=== PATIENT | female | born 1950 | race Caucasian/White ===

== ENCOUNTER 2024-09-02 14:04 | Inpatient (IN) | payer OTHER ==
[2024-09-02 15:20] VITALS: BMI 14.0
[2024-09-02] MEDS ORDERED: POLYETHYLENE GLYCOL (HEALTHYLAX) 3350 17 GM PACKET PO PRN (15:58)
[2024-09-02] MEDS ORDERED: hydrOXYzine PAMOATE 25 MG CAPSULE (FP) PO PRN (15:58)
[2024-09-02] MEDS ORDERED: MAGNESIUM HYDROX 2400MG/30ML ORAL SUSPENSION 30 ML CUP PO PRN (15:58)
[2024-09-02] MEDS ORDERED: NALOXONE (NARCAN) HCL 4 MG/0.1 ML SPRAY NS PRN (15:58)
[2024-09-02] MEDS ORDERED: BENZONATATE 200 MG CAPSULE PO PRN (15:58)
[2024-09-02] MEDS ORDERED: BISMUTH SUBSALICYLATE 524 MG/30 ML PO PRN (15:58)
[2024-09-02] MEDS ORDERED: BENZOCAINE/MENTHOL (CHLORASEPTIC ) LOZENGE MM PRN (15:58)
[2024-09-02] MEDS ORDERED: MAG HYDROX/AL HYDROX/SIMETH 30 ML UNIT-DOSE CUP PO PRN (15:58)
[2024-09-02] MEDS ORDERED: guaiFENesin 600 MG TABLET.ER (FP) PO PRN (15:58)
[2024-09-02] MEDS ORDERED: DICYCLOMINE HCL 10 MG CAPSULE PO PRN (15:58)
[2024-09-02] MEDS ORDERED: ONDANSETRON *ODT* 4 MG TABLET SL PRN (15:58)
[2024-09-02] MEDS: NICOTINE 21 MG/24 HOURS TOPICAL PATCH TD SCH (18:17)
[2024-09-02] MEDS: PRENATAL VITAMINS W/ FOLIC ACID TABLET (FP) PO SCH (18:18)
[2024-09-02] MEDS: METHOCARBAMOL 500 MG TABLET PO PRN (18:22)
[2024-09-02] MEDS: IBUPROFEN 600 MG TABLET (FP) PO PRN (18:24)
[2024-09-02] MEDS: cloNIDine HCL 0.1 MG TABLET PO ONE (18:24)
[2024-09-02] MEDS: MELATONIN 5 MG TABLETS PO SCH (22:23)
[2024-09-02] MEDS: THIAMINE 100 MG TABLET PO SCH (22:23)
[2024-09-02] MEDS: ACETAMINOPHEN 325 MG TABLET (FP) PO PRN (22:25)
[2024-09-03] MEDS: methaDONE HCL 10 MG TABLET (FOR DETOX USE ONLY) PO ONE (09:37)
[2024-09-03] MEDS: cloNIDine HCL 0.1 MG TABLET PO PRN (12:49)
[2024-09-03 14:45] LABS: BASO % 0.3 % (0-2.0); EOS % 1.2 % (0-4.5); HEMATOCRIT 30.6 % (32.4-45.2); LYMPH % 18.2 % (8-40); MCH 30.3 pg (25.7-33.7); MCHC 32.7 g/dl (32.0-36.0); MEAN CELL VOLUME 92.5 fl (80-96); MEAN PLT VOLUME 7.7 fl (7.5-11.1); MONO % 9.5 % (3.8-10.2); NEUT % 70.8 % (42.8-82.8); PLATELET COUNT 241 10^3/uL (134-434); RDW 14.8 % (11.6-15.6); WHITE BLOOD COUNT 7.1 K/mm3 (4.0-10.0)
[2024-09-03] MEDS ORDERED: NICOTINE POLACRILEX 4 MG GUM BUC PRN (14:49)
[2024-09-03 15:02] LABS: POTASSIUM 4.7 mmol/L (3.5-5.1)
[2024-09-03 15:09] LABS: CALCIUM 8.9 mg/dL (8.5-10.1)
[2024-09-03 15:10] LABS: ALBUMIN 3.1 g/dl (3.4-5.0); BLOOD UREA NITROGEN 28.8 mg/dL (7-18)
[2024-09-03 15:13] LABS: CREATININE 0.9 mg/dL (0.55-1.3)
[2024-09-03 15:14] LABS: BILIRUBIN,TOTAL 0.4 mg/dL (0.2-1); TOT PROT 6.3 g/dl (6.4-8.2)
[2024-09-04] MEDS: hydrOXYzine PAMOATE 25 MG CAPSULE (FP) PO PRN (12:24)
[2024-09-04] MEDS ORDERED: diazePAM 5 MG TABLET PO PRN (13:55)
[2024-09-04] MEDS: SUVOREXANT 5 MG TABLET PO PRN (21:38)
[2024-09-05] MEDS ORDERED: methaDONE HCL 10 MG TABLET (FOR DETOX USE ONLY) PO ONE (10:00)
[2024-09-05] MEDS: methaDONE HCL 10 MG TABLET (FOR DETOX USE ONLY) PO ONE (10:55)
[2024-09-06] MEDS: IBUPROFEN 400 MG TABLET (FP) PO PRN (18:49)
[2024-09-07 08:10] LABS: URINE APPEARANCE CLOUDY; URINE BILIRUBIN NEGATIVE (NEGATIVE); URINE COLOR DK YELLOW; URINE GLUCOSE (UA) NEGATIVE (NEGATIVE); URINE KETONE TRACE (NEGATIVE); URINE LEUK ESTERASE NEGATIVE (NEGATIVE); URINE NITRITE NEGATIVE (NEGATIVE); URINE PROTEIN NEGATIVE (NEGATIVE)
[2024-09-07] MEDS: methaDONE HCL 10 MG TABLET (FOR DETOX USE ONLY) PO ONE (09:59)
[2024-09-08] MEDS: LOPERAMIDE HCL 2 MG CAPSULE PO PRN (11:41)
[2024-09-08] MEDS: DIPHENOXYLATE 2.5/ATROPINE.025 1 COMBO TABLET PO PRN (11:41)
[2024-09-08] MEDS ORDERED: TRIMETHOBENZAMIDE HCL 200MG/2ML INJ IM PRN (14:38)
[2024-09-09 06:30] VITALS: BP 113/60; PULSE 70; RESP 18; TEMP 97.7
[2024-09-09] MEDS: NALOXONE (NYS OPIOID OVERDOSE PROGRAM) 4 MG/0.1 ML SPRAY NS PRN (08:50)
== END 2024-09-09 08:52 | disposition home or self-care (01) | DRG 897 ==
LOC: YASAS 14:04 → Y6N 17:06
PROVIDERS: ADMIT Allergy & Immunology; ATTEND Surgery
PROC: HZ2ZZZZ Detoxification Services for Substance Abuse Treatment (ICD-10-PCS; principal; 2024-09-02)
DX: F11.23 Opioid dependence with withdrawal (principal); F19.282 Other psychoactive substance dependence with psychoactive substance-induced sleep disorder; F19.280 Other psychoactive substance dependence with psychoactive substance-induced anxiety disorder; F41.9 Anxiety disorder, unspecified; G47.00 Insomnia, unspecified; I25.119 Atherosclerotic heart disease of native coronary artery with unspecified angina pectoris; I10 Essential (primary) hypertension; I25.2 Old myocardial infarction; Z86.19 Personal history of other infectious and parasitic diseases; Z87.891 Personal history of nicotine dependence
CPT/HCPCS: 36415; 80053; 80305; 81003; 84520; 85025; 86593; 86780; 93005; 93010